=== PATIENT | male | born 1950 | race Caucasian/White ===

== ENCOUNTER 2017-10-27 06:07 | Day surgery (SDC) | payer MEDICARE, OTHER ==
[2017-10-27] MEDS ORDERED: LACTATED RINGERS 1,000 ML IV ONE (06:49)
[2017-10-27] MEDS ORDERED: LIDO GARGLE 30 ML BOTTLE ONE (07:31)
[2017-10-27] MEDS ORDERED: MIDAZOLAM 2 MG/2 ML VIAL IVP ONE (07:38)
[2017-10-27] MEDS ORDERED: fentaNYL 250 MCG/5 ML VIAL IVP ONE (07:38)
[2017-10-27] MEDS ORDERED: LIDO GARGLE 30 ML BOTTLE PO ONE (07:47)
[2017-10-27 09:36] VITALS: BP 110/66
== END 2017-10-27 06:08 | disposition home or self-care (01) ==
LOC: SDS 06:07
PROVIDERS: ATTEND Internal Medicine Gastroenterology
PROC: 0DB68ZX Excision of Stomach, Via Natural or Artificial Opening Endoscopic, Diagnostic (ICD-10-PCS; 2017-10-27)
PROC: 0DJD8ZZ Inspection of Lower Intestinal Tract, Via Natural or Artificial Opening Endoscopic (ICD-10-PCS; principal; 2017-10-27 07:30)
PROC: 0DB48ZX Excision of Esophagogastric Junction, Via Natural or Artificial Opening Endoscopic, Diagnostic (ICD-10-PCS; 2017-10-27 07:30)
DX: R19.4 Change in bowel habit (principal); K57.30 Diverticulosis of large intestine without perforation or abscess without bleeding; K21.9 Gastro-esophageal reflux disease without esophagitis; K44.9 Diaphragmatic hernia without obstruction or gangrene; R10.32 Left lower quadrant pain; F17.210 Nicotine dependence, cigarettes, uncomplicated; I10 Essential (primary) hypertension; E78.5 Hyperlipidemia, unspecified; Z79.82 Long term (current) use of aspirin; Z79.899 Other long term (current) drug therapy; E11.9 Type 2 diabetes mellitus without complications; E66.9 Obesity, unspecified; Z68.32 Body mass index [BMI] 32.0-32.9, adult; N40.0 Benign prostatic hyperplasia without lower urinary tract symptoms
CPT/HCPCS: 43239; 45378; 87081; A9270; J3010; J7120; 88305

== ENCOUNTER 2017-11-21 07:02 | Day surgery (SDC) | payer MEDICARE, OTHER ==
[2017-11-21] MEDS ORDERED: LACTATED RINGERS 1,000 ML IV ONE ×2 (07:07→10:11)
[2017-11-21] MEDS ORDERED: levoFLOXacin 500 MG/100 ML 500 MG/100 ML BAG IV ONE ×2 (07:15→09:17)
[2017-11-21] MEDS ORDERED: BUPIVACAINE 0.5%-EPI 1:200000 PF 30 ML VIAL ONE (09:04)
[2017-11-21] MEDS ORDERED: ceFAZolin 1 GM VIAL ONE (09:05)
[2017-11-21] MEDS ORDERED: KETOROLAC 30 MG/ML VIAL IVP ONE (09:41)
[2017-11-21] MEDS ORDERED: fentaNYL 100 MCG/2 ML VIAL IVP ONE (09:41)
[2017-11-21] MEDS ORDERED: LIDOCAINE-MPF 2% 5 ML VIAL IM ONE (09:41)
[2017-11-21] MEDS ORDERED: ePHEDrine 50 MG/ML AMP IVP ONE (09:41)
[2017-11-21] MEDS ORDERED: PROPOFOL 200 MG/20 ML VIAL IVP ONE (09:41)
[2017-11-21] MEDS ORDERED: ONDANSETRON 4 MG/2 ML VIAL IVP ONE (09:41)
[2017-11-21] MEDS ORDERED: MIDAZOLAM 2 MG/2 ML VIAL IVP ONE (09:41)
[2017-11-21] MEDS ORDERED: DEXAMETHASONE 4 MG/ML VIAL IVP ONE (09:41)
[2017-11-21] MEDS ORDERED: BUPIVACAINE 0.5%-EPI 1:200000 PF 30 ML VIAL SUBQ ONE ×2 (10:07)
[2017-11-21 11:51] VITALS: BP 118/57
--- NOTE | 2017-11-21 11:57 | OPERATIVE REPORT ---
please verify anesthesia provider stated Abimael Prado (=Abimael Cobb?) pls remove this flag before signing - thnx. vic DATE OF SERVICE: 11/21/2017 Physician: Miguel Muro MD PREOPERATIVE DIAGNOSIS: Symptomatic chronically incarcerated left spigelian/ ventral hernia. POSTOPERATIVE DIAGNOSIS: Symptomatic chronically incarcerated left spigelian/ ventral hernia. PROCEDURE PERFORMED: Open repair of chronically incarcerated left spigelian/ventral hernia with mesh. ANESTHESIA: General LMA by Abimael Cobb CRNA. SURGEON: Miguel Muro MD. ESTIMATED BLOOD LOSS: Minimal. DRAINS: None. COMPLICATIONS: None. FINDINGS: A 5 cm oval shaped defect was present in the junction of the posterior rectus sheath and the transversalis and internal oblique aponeuroses, allowing a segment of colon to protrude and be chronically incarcerated. The overlying external oblique aponeurosis was intact. The incarcerated colon was viable. INDICATIONS: Patient is a 67-year-old gentleman with a history of a painful mass in his left lower quadrant. Evaluation revealed the presence of a chronically incarcerated spigelian hernia with a segment of colon incarcerated. He was advised to undergo repair. TECHNIQUE: After informed consent, patient was taken to the operating room where he was placed under general LMA anesthesia. Preoperative preparation included application of sequential calf compression boots and administration of 1 gram of levofloxacin IV within an hour of the incision. His abdomen was clipped and prepared with ChloraPrep solution, draped in the usual sterile fashion. The location of the hernia had previously been marked with indelible ink. A transverse incision was made overlying the palpable mass in the left lower quadrant, approximately 6 cm in length. Hemostasis achieved with electrocautery. Incision was carried down through the subcutaneous tissues until the external oblique aponeurosis was identified and was incised along the lines of its fibers, thereby allowing it to be retracted and exposing the hernia sac. The hernia sac was mobilized. Hernia contents were reduced. The fascial edges were mobilized circumferentially. The hernia sac was reduced, and the internal oblique fascial layer was reapproximated with continuous 0 Ethibond sutures. After hemostasis was assured, the wound was irrigated with antibiotic solution that contained 1 gram of levofloxacin per liter, after which a piece of Covidien ProGrip polypropylene mesh was brought onto the field, soaked in the antibiotic solution, trimmed to appropriate size to cover the fascial closure site, with approximately 3 cm margin circumferentially, and was placed over the fascial closure site. The external oblique aponeurosis was then closed overlying the mesh with continuous 0 Vicryl suture. After hemostasis was achieved and antibiotic irrigation carried out once again, wound closure was accomplished in layers using 2-0 Vicryl to reapproximate the deep subcutaneous tissues, 3-0 Vicryl for the superficial subcutaneous tissues, and 4-0 Monocryl subcuticular skin closure, followed by Dermabond. Anesthesia was terminated, and patient transferred to the recovery room in satisfactory condition. Sponge, needle counts were correct x2. No drains were used. TD: 11/21/2017 11:02 DEJUAN
[2017-11-21] MEDS ORDERED: oxyCOD/ACETAMIN 5 MG/325 MG TABLET PO ONE (12:01)
== END 2017-11-21 07:03 | disposition home or self-care (01) ==
LOC: SDS 07:02
PROVIDERS: ATTEND Internal Medicine Gastroenterology
PROC: 0WUF0JZ Supplement Abdominal Wall with Synthetic Substitute, Open Approach (ICD-10-PCS; principal; 2017-11-21 08:30)
DX: K43.6 Other and unspecified ventral hernia with obstruction, without gangrene (principal); E11.9 Type 2 diabetes mellitus without complications; I10 Essential (primary) hypertension; E78.5 Hyperlipidemia, unspecified; F17.210 Nicotine dependence, cigarettes, uncomplicated
CPT/HCPCS: 49590; A9270; C1781; J7120

== ENCOUNTER 2018-04-18 11:04 | Outpatient (CLI) | payer MEDICARE, OTHER ==
--- NOTE | 2018-04-18 13:53 | CARDIAC PROCEDURE NOTE ---
DATE OF SERVICE: 04/18/2018 Physician: Eliane Hager MD, [facility] INDICATION: Hypertension, right bundle branch block. CARDIAC RISK FACTORS: Male gender, smoker, family history of heart disease, diabetes, hypertension, hyperlipidemia, advanced age. After signing informed consent, the patient performed exercise on a Noah protocol treadmill stress test with nuclear myocardial perfusion imaging. The patient exercised for 2 minutes and 37 seconds on a Noah protocol. The patient achieved a peak heart rate of 132 (86% predicted maximum heart rate for age), 4.6 METS. The patient had mild to moderate shortness of breath, no chest pain. Oxygen saturation was 98% at peak on room air. RESTING HEART RATE: 62. PEAK HEART RATE: 132 (86% PMHR). RESTING BLOOD PRESSURE: 90/58. PEAK BLOOD PRESSURE: 140/60, and this shawn further during early recovery: at 1 minute, blood pressure was 170/80. Following this, he had normal recovery of blood pressure. RESTING EKG: Normal sinus rhythm, right bundle branch block, extreme right axis deviation, poor R-wave progression across the precordium. EKG AT PEAK: No new ST or T-wave changes. SUMMARY 1. Poor exercise tolerance. 2. Very abnormal resting EKG, suggestive of right-sided heart disease or Cor Pulmonale. 3. No ischemic EKG changes at an adequate level of stress. 4. Nuclear images are reported separately. cc: Thompson Kelsey MD TD: 04/18/2018 13:47 MTDD
--- NOTE | 2018-04-18 17:07 | Nuclear Medicine Report ---
Reason: HTN, RBBB, DM Procedure Date: 04/18/2018 Accession Number: [id number] / [id number] Procedure: NM - Myocardial Perfusion STR/RST CPT Code: FULL RESULT: EXAM: SINGLE-ISOTOPE EXERCISE STRESS TEST. SINGLE-ISOTOPE AND ONE-DAY REST/STRESS MYOCARDIAL PERFUSION SCANS WITH TOMOGRAPHIC IMAGING, QUANTITATIVE ANALYSIS, WALL MOTION ANALYSIS AND CALCULATION OF EJECTION FRACTION. EXAM DATE: 04/18/2018 02:58 PM. CLINICAL HISTORY: HTN, RBBB, DM. COMPARISON: None available. TECHNIQUE: A rest myocardial perfusion scan was done with tomography after the intravenous administration of 10.1 mCi Tc-99m sestamibi. After an appropriate delay, a treadmill exercise stress was performed according to department protocol. The patient exercised for 8 minutes and 56 seconds. The maximum heart rate was 124 bpm, which was 84% of the maximum predicted heart rate of 152 bpm. At approximately peak heart rate, 41.3 mCi of Tc-99m sestamibi was injected for stress myocardial perfusion scan. Motion correction was applied when appropriate. Gated tomographic images were obtained for wall motion analysis and computation of left ventricular ejection fraction. FINDINGS: Images show a mild fixed defect in the inferior wall. No reversible perfusion defects are evident. Computer analysis: Summed stress score 6 Summed rest score 4 Summed difference score 2 Wall motion analysis demonstrates no focal wall motion abnormality The left ventricular end-diastolic volume is 62 cc. The left ventricular end-systolic volume is 18 cc. The left ventricular ejection fraction is calculated to be 70%. IMPRESSION: 1. Mild fixed inferior wall perfusion defect. No convincing reversible perfusion defects based on visual analysis. 2. Normal left ventricular ejection fraction of 70%. 3. Normal segmental and global wall motion. 4. Normal left ventricular cavity size, no change with stress. 5. Based on computer analysis, mildly abnormal study with mild ischemia. RADIA
== END 2018-04-18 11:05 | disposition home or self-care (01) ==
LOC: DI 11:04
PROVIDERS: ATTEND Internal Medicine Cardiovascular Disease
DX: I25.9 Chronic ischemic heart disease, unspecified (principal); R94.31 Abnormal electrocardiogram [ECG] [EKG]; I10 Essential (primary) hypertension; I45.2 Bifascicular block; E11.22 Type 2 diabetes mellitus with diabetic chronic kidney disease; N18.3 Chronic kidney disease, stage 3 (moderate)
CPT/HCPCS: 78452; 93017; A9500

== ENCOUNTER 2018-12-03 14:53 | Outpatient (CLI) | payer MEDICARE, OTHER | END 2018-12-03 14:54 | disposition critical access hospital (66) | LOC: EMS 14:53 | PROVIDERS: ATTEND Surgery | DX: M25.511 Pain in right shoulder (principal); W19.XXXA Unspecified fall, initial encounter | CPT/HCPCS: A0425; A0429 ==

== ENCOUNTER 2018-12-03 15:20 | Emergency (ER) | payer MEDICARE, OTHER ==
[2018-12-03] MEDS ORDERED: HYDROcod/ACETAM 5/325 MG TABLET PO STA (15:36)
--- NOTE | 2018-12-03 15:39 | ED Physician Documentation ---
PD HPI UPPER EXT INJURY - Stated complaint Stated Complaint: R SHOULDER PAIN - Chief complaint Chief Complaint: Ext Problem - History obtained from History obtained from: Patient - History of Present Illness Location: Right (He was drinking last night and fell, does not remember details. Only complaint now is R shoulder/anterior chest wall pain. No head injury/headache.) Review of Systems Constitutional: reports: Reviewed and negative Throat: reports: Reviewed and negative Cardiac: reports: Reviewed and negative Respiratory: reports: Reviewed and negative PD PAST MEDICAL HISTORY - Past Medical History Past Medical History: Yes Cardiovascular: Hypertension, High cholesterol Respiratory: None Endocrine/Autoimmune: Type 2 diabetes GI: GERD, Cholelithiasis : Benign prostate hypertrophy HEENT: None Psych: None Musculoskeletal: Osteoarthritis - Past Surgical History Past Surgical History: Yes General: Cholecystectomy, Hiatal hernia repair, Colonoscopy, Other Ortho: Knee replacement - Present Medications Home Medications: Ambulatory Orders Medication Instructions Recorded Confirmed Amitriptyline HCl 100 mg PO DAILY PM 11/02/13 11/21/17 Aspirin EC [Ecotrin] 325 mg PO DAILY 11/02/13 11/21/17 Meloxicam 15 mg PO DAILY 01/21/14 11/21/17 Lisinopril 1 tab PO DAILY 10/26/17 11/21/17 Pantoprazole [Protonix] 1 tab PO DAILY 10/26/17 11/21/17 Sitagliptin Phos/Metformin HCl 1 tab PO BID 10/26/17 11/21/17 [Janumet 50-500 mg Tablet] Atorvastatin Calcium [Lipitor] 40 mg PO DAILY PM 11/18/17 11/21/17 Finasteride 5 mg PO DAILY 11/18/17 11/21/17 Indapamide 2.5 mg PO DAILY 11/18/17 11/21/17 Loratadine 10 mg PO DAILY 11/18/17 11/21/17 Tamsulosin [Flomax] 1 tab PO DAILY 11/18/17 11/21/17 tiZANidine [Zanaflex] 4 mg PO BID 11/18/17 11/21/17 Hydrocodone/Acetaminophen 1 - 2 each PO Q6H PRN #20 tablet 12/03/18 [Hydrocodon-Acetaminophen 5-325] - Allergies Allergies/Adverse Reactions: Allergies Allergy/AdvReac Type Severity Reaction Status Date / Time vancomycin Allergy Hives Verified 11/18/17 15:18 cephalexin monohydrate * AdvReac Unknown Rash Verified 11/18/17 15:18 [From Keflex] - Social History Does the pt smoke?: Yes Smoking Status: Current every day smoker Does the pt drink ETOH?: Yes Does the pt have substance abuse?: No - Immunizations Immunizations are current?: Yes - POLST Patient has POLST: No PD ED PE NORMAL - Vitals Vital signs reviewed: Yes - General General: Alert and oriented X 3, No acute distress - HEENT HEENT: PERRL, EOMI - Neck Neck: Supple, no meningeal sign, No bony TTP - Cardiac Cardiac: RRR, No murmur - Respiratory Respiratory: No respiratory distress, Clear bilaterally - Abdomen Abdomen: Non tender - Neuro Neuro: Alert and oriented X 3, Normal speech - Psych Psych: Normal mood, Normal affect PD ED PE EXPANDED - Visual Whole body visual: 1 - tenderness (ecchymotic, tender, no deformity. Adbucts to 90 degrees then painful.) Results - Vitals Vitals: Vital Signs - 24 hr 12/03/18 15:26 Temperature 36.5 C Heart Rate 87 Respiratory 16 Rate Blood Pressure 141/80 H O2 Saturation 96 Oxygen O2 Source Room air - Rads (name of study) R ribs and R shoulder Radiology: EMP read contemporaneously (Mildly displaced lateral clavicular frx. R 3rd rib frx.) Departure - Departure Disposition: 01 Home, Self Care Clinical Impression: Rib fracture Qualifiers: Encounter type: initial encounter Rib fracture type: single rib Fracture type: closed Laterality: right Qualified Code(s): S22.31XA - Fracture of one rib, right side, initial encounter for closed fracture Right clavicle fracture Qualifiers: Encounter type: initial encounter Clavicle location: lateral end Fracture type: closed Fracture alignment: displaced Qualified Code(s): S42.031A - Displaced fracture of lateral end of right clavicle, initial encounter for closed fracture Condition: Good Record reviewed to determine appropriate education?: Yes Instructions: ED Fx Clavicle, ED Fx Rib Follow-Up: [facility] [Provider Group] - Within 1 week Prescriptions: Hydrocodone/Acetaminophen [Hydrocodon-Acetaminophen 5-325] 1 - 2 each PO Q6H PRN #20 tablet PRN Reason: pain Comments: Your blood pressure was elevated today on check into the emergency department. This does not mean that you have hypertension, it is a common phenomenon to come to the emergency department and have elevated blood pressure. I recommend that you see your primary care physician within the week to have it rechecked when you are feeling better. Do not drink or drive while taking narcotic pain medication. Note that many narcotic pain relievers also contain Tylenol/acetaminophen. Please ensure that your total dose of acetaminophen from all sources does not exceed 3 g (3000 mg) per day. You may get constipated while on this medication. Take a stool softener such as Colace twice a day while you are on it. Also add an [id number] laxative such as senna or MiraLAX on any day that you do not have a bowel movement. If you received a narcotic pain medication or sedative while in the emergency department, do not drive for the next 24 hours.
--- NOTE | 2018-12-03 16:28 | XRAY Report ---
Reason: fall, shoulder/chest wall inj Procedure Date: 12/03/2018 Accession Number: [id number] / [id number] Procedure: XR - Shoulder 3 View RT CPT Code: FULL RESULT: EXAM: RIGHT SHOULDER RADIOGRAPHY EXAM DATE: 12/03/2018 04:02 PM. CLINICAL HISTORY: Fall. Shoulder/chest wall injury. COMPARISON: RIBS W/PA CHEST RT 12/03/2018 3:49 PM. TECHNIQUE: 3 views. FINDINGS: Bones: Mildly displaced lateral clavicle fracture. No other acute traumatic or destructive bony abnormality. Joints: The glenohumeral and acromioclavicular joints are normal. Soft tissues: The visualized hemithorax is unremarkable. No soft tissue calcification. IMPRESSION: Mildly displaced lateral clavicle fracture. RADIA
--- NOTE | 2018-12-03 16:38 | XRAY Report ---
Reason: fall, shoulder/chest wall inj Procedure Date: 12/03/2018 Accession Number: [id number] / [id number] Procedure: XR - Ribs w/PA Chest RT CPT Code: FULL RESULT: EXAM: RIGHT RIB RADIOGRAPHY. EXAM DATE: 12/03/2018 04:02 PM. CLINICAL HISTORY: Fall. Right shoulder/chest wall injury. COMPARISON: 01/21/2014 5:22 PM. SHOULDER 3 VIEW RT 12/03/2018 3:49 PM. TECHNIQUE: 1 view of the chest and 2 views of the ribs. FINDINGS: Bones: Mildly displaced lateral clavicle fracture. Anterolateral right third rib fracture. No other acute fracture identified, noting old posterolateral eighth and ninth rib fracture deformities. Lungs: No focal opacities. No pneumothorax. No pleural effusions. Mediastinum: Heart and mediastinal contours are unremarkable. Other: None. IMPRESSION: 1. Mildly displaced lateral clavicle fracture. 2. Anterolateral right third rib fracture. 3. Old fractures of the posterolateral right eighth and ninth ribs. RADIA
[2018-12-03] MEDS ORDERED: HYDROcod/ACET 5/325 Prepack 4 PO STA (16:46)
[2018-12-03 17:03] VITALS: BP 138/82
== END 2018-12-03 17:02 | disposition home or self-care (01) ==
LOC: EDUNIT# → ED 15:20
DX: S42.031A Displaced fracture of lateral end of right clavicle, initial encounter for closed fracture (principal); S22.31XA Fracture of one rib, right side, initial encounter for closed fracture; W19.XXXA Unspecified fall, initial encounter; I10 Essential (primary) hypertension; E11.9 Type 2 diabetes mellitus without complications; Z79.84 Long term (current) use of oral hypoglycemic drugs; Z79.82 Long term (current) use of aspirin; F17.200 Nicotine dependence, unspecified, uncomplicated
CPT/HCPCS: 71101; 73030; 99283; 99284; A9270

== ENCOUNTER 2019-02-06 10:47 | Emergency (ER) | payer MEDICARE, OTHER ==
[2019-02-06 11:11] LABS: BASOPHILS % (AUTO) 0.3 %; EOSINOPHILS # (AUTO) 0.4 10^3/uL (0.0-0.7); EOSINOPHILS % (AUTO) 4.8 %; HGB - HEMOGLOBIN 15.1 g/dL (14.0-18.0); LYMPHOCYTES # (AUTO) 1.3 10^3/uL (1.5-3.5); LYMPHOCYTES % (AUTO) 17.3 %; MEAN CORPUSCULAR HEMOGLOBIN 30.4 pg (27.0-31.0); MEAN CORPUSCULAR HGB CONC 33.1 g/dL (32.0-36.0); MEAN CORPUSCULAR VOLUME 91.8 fL (80.0-94.0); MEAN PLATELET VOLUME 10.3 fL (7.4-11.4); MONOCYTES # (AUTO) 0.5 10^3/uL (0.0-1.0); NEUTROPHILS # (AUTO) 5.4 10^3/uL (1.5-6.6); NEUTROPHILS % (AUTO) 71.3 %; PLT - PLATELET COUNT 152 10^3/uL (130-450); RED BLOOD COUNT 4.97 10^6/uL (4.70-6.10); RED CELL DISTRIBUTION WIDTH 12.4 % (12.0-15.0); WHITE BLOOD COUNT 7.5 x10^3/uL (4.8-10.8)
[2019-02-06 11:28] LABS: ALBUMIN 4.2 g/dL (3.2-5.5); ALBUMIN/GLOBULIN RATIO 1.6 (1.0-2.2); BILIRUBIN,TOTAL 1.1 mg/dL (0.2-1.0); CALCIUM 11.1 mg/dL (8.5-10.3); CREATININE 1.1 mg/dL (0.6-1.2); TOTAL PROTEIN 6.9 g/dL (6.7-8.2)
[2019-02-06] MEDS ORDERED: MAG HYDROX/AL HYDROX/SIMETH 30 ML UDC PO STA (13:01)
[2019-02-06] MEDS ORDERED: LIDOCAINE VISCOUS 2% 15 ML UDC MM STA (13:01)
--- NOTE | 2019-02-06 13:02 | ED Physician Documentation ---
PD HPI ABD PAIN - Stated complaint Stated Complaint: STOMACH PX/INDEGETION - Chief complaint Chief Complaint: Abd Pain - History obtained from History obtained from: Patient - History of Present Illness Timing - onset: Other (For the last week he is constantly had epigastric burning that is nonradiating consistent with prior episodes of reflux. It sometimes comes up to his chest and he feels an acid taste with it. He is been taking a PPI and Tums without relief, although he says the Tums gives him very fleeting relief. No sweats or shortness of breath.) Review of Systems Constitutional: denies: Fever, Chills Cardiac: denies: Palpitations, Pedal edema, Calf pain Respiratory: denies: Dyspnea, Cough, Hemoptysis, Wheezing PD PAST MEDICAL HISTORY - Past Medical History Cardiovascular: Hypertension, High cholesterol Respiratory: None Endocrine/Autoimmune: Type 2 diabetes GI: GERD, Cholelithiasis : Benign prostate hypertrophy HEENT: None Psych: None Musculoskeletal: Osteoarthritis - Past Surgical History Past Surgical History: Yes General: Cholecystectomy, Hiatal hernia repair, Colonoscopy, Other Ortho: Knee replacement - Present Medications Home Medications: Ambulatory Orders Medication Instructions Recorded Confirmed Amitriptyline HCl 100 mg PO DAILY PM 11/02/13 11/21/17 Aspirin EC [Ecotrin] 325 mg PO DAILY 11/02/13 11/21/17 Meloxicam 15 mg PO DAILY 01/21/14 11/21/17 Lisinopril 1 tab PO DAILY 10/26/17 11/21/17 Pantoprazole [Protonix] 1 tab PO DAILY 10/26/17 11/21/17 Sitagliptin Phos/Metformin HCl 1 tab PO BID 10/26/17 11/21/17 [Janumet 50-500 mg Tablet] Atorvastatin Calcium [Lipitor] 40 mg PO DAILY PM 11/18/17 11/21/17 Finasteride 5 mg PO DAILY 11/18/17 11/21/17 Indapamide 2.5 mg PO DAILY 11/18/17 11/21/17 Loratadine 10 mg PO DAILY 11/18/17 11/21/17 Tamsulosin [Flomax] 1 tab PO DAILY 11/18/17 11/21/17 tiZANidine [Zanaflex] 4 mg PO BID 11/18/17 11/21/17 Hydrocodone/Acetaminophen 1 - 2 each PO Q6H PRN #20 tablet 12/03/18 [Hydrocodon-Acetaminophen 5-325] Hydrocodone/Acetaminophen 1 - 2 each PO Q6H PRN #14 tablet 02/06/19 [Hydrocodon-Acetaminophen 5-325] Omeprazole 20 mg PO BID #30 capsule. 02/06/19 Sucralfate [Carafate] 1 gm PO ACHS #60 tablet 02/06/19 - Allergies Allergies/Adverse Reactions: Allergies Allergy/AdvReac Type Severity Reaction Status Date / Time vancomycin Allergy Hives Verified 02/06/19 10:57 cephalexin monohydrate * AdvReac Unknown Rash Verified 02/06/19 10:57 [From Keflex] - Social History Does the pt smoke?: Yes Smoking Status: Current every day smoker Does the pt drink ETOH?: Yes Does the pt have substance abuse?: No - Immunizations Immunizations are current?: Yes - POLST Patient has POLST: No PD ED PE NORMAL - Vitals Vital signs reviewed: Yes - General General: Alert and oriented X 3, No acute distress - HEENT HEENT: PERRL, EOMI, Pharynx benign - Neck Neck: Supple, no meningeal sign, No bony TTP - Cardiac Cardiac: RRR, No murmur - Respiratory Respiratory: No respiratory distress, Clear bilaterally - Abdomen Abdomen: Soft, Non tender - Extremities Extremities: No edema, No calf tenderness / cord - Neuro Neuro: Alert and oriented X 3, Normal speech Results - Vitals Vitals: Vital Signs - 24 hr 02/06/19 10:54 Temperature 36 C L Heart Rate 95 Respiratory 20 Rate Blood Pressure 102/63 O2 Saturation 99 Oxygen O2 Source Room air - EKG (time done) 1101 Rate: Rate (enter#) (89) Rhythm: NSR Icard: Normal Intervals: RBBB, Other (LAFB) Ischemia: Normal ST segments Computer interpretation: Agree with computer - Labs Labs: Laboratory Tests 02/06/19 02/06/19 11:08 11:08 WBC 7.5 RBC 4.97 Hgb 15.1 Hct 45.6 MCV 91.8 MCH 30.4 MCHC 33.1 RDW 12.4 Plt Count 152 MPV 10.3 Neut # (Auto) 5.4 Lymph # (Auto) 1.3 L Carter # (Auto) 0.5 Eos # (Auto) 0.4 Baso # (Auto) 0.0 Absolute Nucleated RBC 0.00 Nucleated RBC % 0.0 Sodium 139 Potassium 4.8 Chloride 99 L Carbon Dioxide 31 Anion Gap 9.0 BUN 24 H Creatinine 1.1 Estimated GFR (MDRD) 67 L Glucose 238 H Calcium 11.1 H Total Bilirubin 1.1 H AST 38 ALT 38 Alkaline Phosphatase 85 Total Protein 6.9 Albumin 4.2 Globulin 2.7 Albumin/Globulin Ratio 1.6 Lipase 23 PD MEDICAL DECISION MAKING - ED course ED course: 68-year-old gentleman presents with what he feels like his acid indigestion and his symptoms typical. He had complete relief with a GI cocktail here. Departure - Departure Disposition: Home, Self Care Clinical Impression: Abdominal pain Qualifiers: Abdominal location: epigastric Qualified Code(s): R10.13 - Epigastric pain Condition: Good Record reviewed to determine appropriate education?: Yes Instructions: ED GERD Prescriptions: Hydrocodone/Acetaminophen [Hydrocodon-Acetaminophen 5-325] 1 - 2 each PO Q6H PRN #14 tablet PRN Reason: pain Omeprazole 20 mg PO BID #30 capsule. Sucralfate [Carafate] 1 gm PO ACHS #60 tablet Comments: Stop the meloxicam for now. Follow-up with your doctor, next available appointment. As discussed the sucralfate/Carafate needs to be taken at least an hour separate from other medications.
[2019-02-06] MEDS ORDERED: HYDROcod/ACETAM 5/325 MG TABLET PO STA (13:24)
[2019-02-06 13:31] VITALS: BP 131/94
== END 2019-02-06 13:36 | disposition home or self-care (01) ==
LOC: ED 10:47
DX: R10.13 Epigastric pain (principal); I10 Essential (primary) hypertension; E11.9 Type 2 diabetes mellitus without complications; F17.200 Nicotine dependence, unspecified, uncomplicated
CPT/HCPCS: 36415; 80053; 83690; 85025; 93005; 99283; 99284; A9270

== ENCOUNTER 2020-06-09 07:00 | Outpatient (CLI) | payer MEDICARE, OTHER ==
--- NOTE | 2020-06-09 15:27 | XRAY Report ---
PROCEDURE: Shoulder 3 View RT INDICATIONS: R SHOULDER PX TECHNIQUE: 4 views of the shoulder were acquired. COMPARISON: 12/03/2018. FINDINGS: Bones: Old healed right distal clavicular fracture is seen with chronic-appearing deformity. Moderate acromioclavicular joint osteophytic changes are seen. No acute fracture or dislocation. No suspiciou s bony lesions. Visualized ribs appear intact. Soft tissues: No suspicious soft tissue calcifications. IMPRESSION: Old healed right distal clavicular fracture. Moderate acromioclavicular joint osteoarthr itis. No acute fracture or dislocation. Reviewed by: Vicente Hooper MD on 06/09/2020 3:25 PM PST Approved by: Vicente Hooper MD on 06/09/2020 3:25 PM PST Station ID: [id number]
== END 2020-06-09 23:59 | disposition home or self-care (01) ==
LOC: DI.N 07:00
PROVIDERS: ATTEND Orthopaedic Surgery
DX: M19.011 Primary osteoarthritis, right shoulder (principal); S42.031D Displaced fracture of lateral end of right clavicle, subsequent encounter for fracture with routine healing